=== PATIENT | male | born 1950 | race Asian ===

== ENCOUNTER 2018-07-20 00:20 | Inpatient (IN) | payer OTHER ==
[~2018-07-20] VITALS: Ht 177.8 cm; Wt 90.3 kg
[2018-07-20 00:34] VITALS: Ht 177.8 cm; Wt 90.3 kg
[2018-07-20 01:51] LABS: RED CELL DISTRIBUTION WIDTH 13.4 % (11.5-14.5)
[2018-07-20 01:58] LABS: BASOPHIL % 3 % (0-2); PLATELET COUNT 158 x10^3mcL (130-400)
[2018-07-20] MEDS ORDERED: BRILINTA60 MG PO (02:07)
[2018-07-20] MEDS ORDERED: ISOSORBIDE MONO30 MG PO (02:07)
[2018-07-20] MEDS ORDERED: COZAAR25 M1 (02:08)
[2018-07-20] MEDS ORDERED: LIPI10 PO (02:08)
[2018-07-20 02:57] LABS: CARBON DIOXIDE 26.5 mmol/L (21-32); CREATININE SERUM 1.4 mg/dL (0.7-1.3); POTASSIUM SERUM 3.9 mmol/L (3.5-5.1)
[2018-07-20 03:04] LABS: ALBUMIN 3.6 g/dL (3.4-5.0); BILIRUBIN TOTAL 0.55 mg/dL (0.20-1.00); TOTAL PROTEIN, SERUM 7.5 g/dL (6.4-8.2)
[2018-07-20 03:53] VITALS: BP 145/86
[2018-07-20 04:08] LABS: MAGNESIUM 2.2 mg/dL (1.8-2.4)
[2018-07-20 04:11] LABS: CHOLESTEROL/HDL RATIO 1.8
[2018-07-20 04:22] LABS: microscopic required? NO
[2018-07-20 04:43] LABS: urine erythrocyte NEGATIVE (NEGATIVE)
[2018-07-20 04:56] LABS: AMPHETAMINE QUAL UR NONE DETECTED (See below)
[2018-07-20 08:00] VITALS: BP 121/70
[2018-07-20 11:45] VITALS: BP 121/70
[2018-07-20 12:27] VITALS: BP 129/73
== END 2018-07-20 13:36 | disposition home or self-care (01) | DRG 305 ==
LOC: ED 00:20 → DU 03:11
PROVIDERS: Emergency Medicine; Internal Medicine
DX: I16.0 Hypertensive urgency (principal); R09.1 Pleurisy; I49.9 Cardiac arrhythmia, unspecified; I25.10 Atherosclerotic heart disease of native coronary artery without angina pectoris; Z68.29 Body mass index [BMI] 29.0-29.9, adult; Z95.5 Presence of coronary angioplasty implant and graft
CPT/HCPCS: 83880